=== PATIENT | female | born 1995 | race Caucasian/White ===

== ENCOUNTER 2017-01-23 09:04 | Day surgery (SDC) | payer OTHER ==
[2016-12-23 11:11] VITALS: BMI 26.2
[2017-01-23] VITALS (15 sets, daily range): BP systolic 100–121; BP diastolic 55–70; PULSE 60–90; RESP 10–24; Ht 157.5 cm; Wt 66.4 kg
[~2017-01-23] VITALS: Ht 157.5 cm; Wt 66.4 kg
[~2017-01-23 09:04] MED LIST: CEFAZOLIN 2 GM/50 ML (PMX) 50 ML IVPB SCH; FAMO-18 PO; GUAI120S26 PO; IBUP-1542 PO; LORA10TA3 PO; NITR-58 PO; ONDA4TAB8 PO; POLY17PO6 PO; SOD CHLORIDE 0.9% 1,000 ML IV SCH
[2017-01-23] MEDS ORDERED: MIDAZOLAM 1 MG/ML 2 ML INJ ONE (09:44)
[2017-01-23] MEDS ORDERED: LIDOCAINE 2% (SDV) 5 ML INJ ONE (09:44)
[2017-01-23] MEDS ORDERED: ROCURONIUM 50 MG INJ ONE (09:44)
[2017-01-23] MEDS ORDERED: FENTAnyl 50 MCG/ML VIAL ONE ×2 (09:44→11:58)
[2017-01-23] MEDS ORDERED: SUCCINYLCHOLINE CHLORIDE 100 MG/5 ML SYG IV ONE (09:44)
[2017-01-23] MEDS ORDERED: CEFAZOLIN 1 GM INJ ONE (09:44)
[2017-01-23] MEDS ORDERED: PROPOFOL 20 ML ONE (09:44)
[2017-01-23] MEDS ORDERED: HYDR-906 PO (10:10)
[2017-01-23] MEDS ORDERED: SOD CHLORIDE 0.9% 1,000 ML IV SCH (10:30)
[2017-01-23] MEDS ORDERED: CEFAZOLIN 2 GM/50 ML (PMX) 50 ML IVPB ONE (10:30)
[2017-01-23] MEDS ORDERED: BUPIVACAINE 0.25% (MPF) 30 ML INJ ONE (11:24)
[2017-01-23] MEDS ORDERED: ONDANSETRON 4 MG INJ ONE (11:43)
[2017-01-23] MEDS ORDERED: DEXAMETHASONE 4 MG/ML 1 ML INJ ONE (11:44)
[2017-01-23] MEDS ORDERED: GLYCOPYRROLATE 0.4 MG INJ ONE (11:48)
[2017-01-23] MEDS ORDERED: NEOSTIGMINE 3 MG/3 ML SYRINGE ONE (11:48)
[2017-01-23] MEDS ORDERED: ONDANSETRON 4 MG INJ IV PRN (12:00)
[2017-01-23] MEDS ORDERED: PROCHLORPERAZINE 10 MG INJ IV PRN (12:00)
[2017-01-23] MEDS ORDERED: KETOROLAC 30 MG INJ IV ONE (12:00)
[2017-01-23] MEDS ORDERED: DIPHENHYDRAMINE 50 MG INJ IV PRN (12:00)
[2017-01-23] MEDS ORDERED: HYDROmorphONE (0.2 MG/ML) 10ML SYG IV PRN (12:00)
[2017-01-23] MEDS ORDERED: FENTAnyl 50 MCG/ML VIAL IV PRN (12:00)
[2017-01-23] MEDS ORDERED: MEPERIDINE 25 MG INJ IV PRN (12:00)
[2017-01-23] MEDS ORDERED: OXYCODONE/ACETAMINOPHEN (5/325) TAB PO PRN ×2 (12:00)
[2017-01-23] MEDS ORDERED: METOCLOPRAMIDE 10 MG INJ IV PRN (12:00)
[2017-01-23] MEDS ORDERED: HYDROCODONE/APAP (5/325) TAB PO ONE (12:30)
[2017-01-23] MEDS: HYDROmorphONE (0.2 MG/ML) 10ML SYG IV PRN ×2 (12:37→12:44)
--- NOTE | 2017-01-23 12:39 | OPR ---
DATE OF OPERATION: 01/23/2017 INDICATION: This is a 21-year-old female with symptomatic gallstones. She requests surgical excisi on of her gallbladder. Risks, alternatives, benefits, and personnel were discussed with the patient. The patient expressed understanding and consents to the operation. PREOPERATIVE DIAGNOSIS: Symptomatic gallstones. POSTOPERATIVE DIAGNOSIS: Symptomatic gallstones. OPERATION: Laparoscopic cholecystectomy. SURGEON: Rabia Tse MD SPECIMENS: Gallbladder. COMPLICATIONS: None. ANESTHESIA: General. PROCEDURE: The patient was taken to the OR and prepped and draped in the usual sterile fashion. Nichole rgical timeout was performed. IV antibiotics were given. Infraumbilical transverse incision is mad e with a 15 blade. Dissection cautery was carried down to the fascia which was grasped with Kochers and divided with curved Patterson scissors, 0 Vicryl U-stitch was placed into the fascia. Balloon Hasso n trocar was introduced. Pneumoperitoneum was established. Midepigastric 12 mm optical trocar righ t upper quadrant, right upper flank 5 mm optical trocars are placed under direct visualization. Upo n initial inspection, there were some adhesions to the gallbladder. The cystic duct was identified. The critical view was established. The cystic duct was divided using a 35 mm Hercules vascular morales d stapler. The cystic artery was divided with 2 clips proximal, 1 clip distal. The gallbladder was taken off the gallbladder bed. There was good hemostasis. Gallbladder was retrieved using EndoCat ch bag. Ports were removed under direct visualization. The 0 Vicryl U-stitch was tied down. Skin was closed using skin bushra. Local anesthesia was injected. Dry dressings were applied. Dictated By: RABIA CAMPOS/NAT Conf#: [id number] DID#: [id number]
== END 2017-01-23 14:00 | disposition home or self-care (01) ==
LOC: SDS 09:04
PROVIDERS: ATTEND Surgery
DX: K80.10 Calculus of gallbladder with chronic cholecystitis without obstruction (principal)
CPT/HCPCS: 47562; 88304; J0330; J0690; J1100; J1170; J1885; J2175; J2250; J2405; J2710; J3010; Z7512; Z7610

== ENCOUNTER 2017-02-05 19:01 | Emergency (ER) | payer OTHER ==
[~2017-02-05] VITALS: Ht 157.5 cm; Wt 66.0 kg
[~2017-02-05 19:01] MED LIST changes: -CEFAZOLIN 2 GM/50 ML (PMX) 50 ML IVPB SCH; -FAMO-18 PO; -GUAI120S26 PO; +HYDR-906 PO; -IBUP-1542 PO; -LORA10TA3 PO; -NITR-58 PO; -ONDA4TAB8 PO; -POLY17PO6 PO; -SOD CHLORIDE 0.9% 1,000 ML IV SCH
[2017-02-05 19:16] VITALS: Ht 157.5 cm; Wt 66.0 kg
[2017-02-05] MEDS ORDERED: HYDR-906 PO (20:22)
[2017-02-05] MEDS ORDERED: POLY17PO6 PO (20:22)
[2017-02-05] MEDS ORDERED: HYDR30CR75 PR (20:22)
--- NOTE | 2017-02-05 20:28 | ERD ---
ER Documentation Chief Complaint Date/Time DATE: 02/05/17 TIME: 20:23 Chief Complaint states blood in stool x 2 days HPI 21-year-old female complains of rectal bleeding. Patient states that she has been very constipated as of lately and has been straining hard to push out her stool. She was the past 2 days after bowel movement she feels like a tearing sensation or that she is passing glass. After the bowel movement she has some bright red bleeding in the toilet and on toilet paper . No abdominal pain no dizziness ROS All systems reviewed and are negative except as per history of present illness. Medications Home Meds Active Scripts Polyethylene Glycol* (Miralax*) 17 Gm Powd.pack, 17 GM PO DAILY, #10 PACKET Prov:VANESSA SERVIN DO 02/05/17 Hydrocortisone Acetate* (Anusol-HC*) 30 Gm Cream.gm., 1 APPLIC FL TID, #1 TUB Prov:VANESSA SERVIN DO 02/05/17 Hydrocodone/Acetaminophen ([place] 5-325 Tablet) 1 Each Tablet, 1 TAB PO Q6H Y for PAIN, #7 TAB Prov:VANESSA SERVIN DO 02/05/17 Reported Medications Hydrocodone/Acetaminophen ([place] 5-325 Tablet) 1 Each Tablet, 1 EACH PO Q6 Y for PAIN, TAB 01/23/17 Allergies Allergies: Coded Allergies: No Known Allergy (Unverified , 02/05/17) PMhx/Soc Medical and Surgical Hx: pt denies Surgical Hx History of Surgery: No Anesthesia Reaction: No Hx Neurological Disorder: No Hx Respiratory Disorders: No Hx Cardiac Disorders: No Hx Psychiatric Problems: No Hx Miscellaneous Medical Probl: No Hx Alcohol Use: No Hx Substance Use: No Hx Tobacco Use: No Smoking Status: Never smoker FmHx Family History: No coronary disease Physical Exam Vitals Vital Signs Date Time Temp Pulse Resp B/P Pulse Ox O2 Delivery O2 Flow Rate FiO2 02/05/17 19:16 98.2 97 20 123/77 100 Physical Exam Const: [Well-developed, well-nourished] Head: [Atraumatic, normocephalic] Eyes: [Normal Conjunctiva, PERRLA, EOMI, normal sclera, no nystagmus] ENT: [Normal External Ears, Nose and Mouth, moist mucus membranes.] Neck: [Full range of motion. No meningismus, no lymphadenopathy.] Resp: [Clear to auscultation bilaterally, no wheezing, rhonchi, rales] Cardio: [Regular rate and rhythm, no murmurs, S1 S2 present] Abd: [Soft, non tender x 4, non distended. Normal bowel sounds, no guarding or rebound, no pulsitile abdominal masses or bruits Rectal: There is an anal fissure at the 3 o'clock position] Skin: [No petechiae or rashes, no ecchymosis , no maculopapular rash] Back: [No midline or flank tenderness] Ext: [No cyanosis, or edema, FROM x 4, normal inspection, neurovascularly intact x 4] Neur: [Awake and alert, STR 5/5 x 4, sensation intact x 4, no focal findings, cerebellum intact] Psych: [Normal Mood and Affect] Departure Diagnosis: Primary Impression: Anal fissure Condition: Stable Patient Instructions: Anal Fissure (Child) VANESSA SERVIN DO Feb 05, 2017 20:28
== END 2017-02-05 20:58 | disposition home or self-care (01) ==
LOC: FTE 19:01
DX: K60.0 Acute anal fissure (principal)
CPT/HCPCS: 99283

== ENCOUNTER 2019-01-18 22:12 | Emergency (ER) | payer BC, OTHER ==
[~2019-01-18] VITALS: Wt 70.5 kg
[~2019-01-18 22:12] MED LIST changes: +HYDR-4011 PO; -HYDR-906 PO; +HYDR30CR75 PR; +POLY17PO6 PO
[2019-01-19] MEDS ORDERED: ONDANSETRON (ODT) 4 MG TAB ODT STA (01:43)
[2019-01-19] MEDS ORDERED: ONDA4TAB14 PO (01:44)
--- NOTE | 2019-01-19 02:04 | ERD ---
ER Documentation Chief Complaint Chief Complaint c/o n/v all day today. no appetite. denies abd pain. on her period HPI Patient states that she has had creased appetite and nausea X4 days and today had postprandial emesis. States that whenever she tries to eat or drink she throws up. She traveled to [place] last weekend. No diarrhea, no abdominal pain, no fever, no cough, no headache, no body aches. ROS All systems reviewed and are negative except as per history of present illness. Medications Home Meds Active Scripts Ondansetron (Ondansetron Odt) 4 Mg Tab.rapdis, 4 MG PO Q6H PRN for NAUSEA AND/OR VOMITING for 3 Days, #10 TAB Prov:QUYEN LOCKWOOD SENIOR ESTIMATOR 01/19/19 Polyethylene Glycol* (Miralax*) 17 Gm Powd.pack, 17 GM PO DAILY, #10 PACKET Prov:VANESSA SERVIN DO 02/05/17 Hydrocortisone Acetate* (Anusol-HC*) 30 Gm Cream.gm., 1 APPLIC MA TID, #1 TUB Prov:VANESSA SERVIN DO 02/05/17 Hydrocodone/Acetaminophen ([place] 5-325 Tablet) 1 Each Tablet, 1 TAB PO Q6H PRN for PAIN, #7 TAB Prov:VANESSA SERVIN DO 02/05/17 Reported Medications Hydrocodone/Acetaminophen ([place] 5-325 Tablet) 1 Each Tablet, 1 EACH PO Q6 PRN for PAIN, TAB 01/23/17 Allergies Allergies: Coded Allergies: No Known Allergy (Unverified , 02/05/17) PMhx/Soc History of Surgery: Yes (GALLBLADDER REMOVAL 2016) Anesthesia Reaction: No Hx Neurological Disorder: No Hx Respiratory Disorders: No Hx Cardiac Disorders: No Hx Psychiatric Problems: No Hx Miscellaneous Medical Probl: No Hx Alcohol Use: Yes (occasionally) Hx Substance Use: No Hx Tobacco Use: No Smoking Status: Never smoker Physical Exam Vitals Vital Signs Date Temp Pulse Resp B/P (MAP) Pulse Ox O2 O2 Flow FiO2 Time Delivery Rate 01/18/19 98.9 82 20 138/68 100 22:37 (91) Physical Exam Const: No acute distress Head: Atraumatic Eyes: Normal Conjunctiva ENT: Normal External Ears, Nose and Mouth. Neck: Full range of motion. No meningismus. Resp: Clear to auscultation bilaterally Cardio: Regular rate and rhythm, no murmurs Abd: Soft, non tender, non distended. Normal bowel sounds. Skin: No petechiae or rashes, good skin turgor Back: No midline or flank tenderness Ext: No cyanosis, or edema Neur: Awake and alert Psych: Normal Mood and Affect Results 24 hrs Laboratory Tests Test 01/19/19 02:00 01/19/19 02:02 Bedside Urine pH (LAB) 6.0 Bedside Urine Protein (LAB) 1+ Bedside Urine Glucose (UA) Negative Bedside Urine Ketones (LAB) Trace Bedside Urine Blood 3+ Bedside Urine Nitrite (LAB) Negative Bedside Urine Leukocyte Esterase (L Negative POC Beta HCG, Qualitative NEGATIVE Current Medications Medications Dose Sig/Yessenia Start Time Status Last (Trade) Ordered Route PRN Stop Time Admin Dose Reason Admin Ondansetron 4 mg ONCE STAT 01/19/19 DC 01/19/19 HCl (Zofran ODT 01:43 01/19/19 01:57 Odt) 01:44 PATIENT IS CURRENTLY ON HER PERIOD- BLOOD DUE TO MENSES Procedures/MDM This patient has gastroenteritis. Without culture results, a preliminary diagnosis of undifferentiated (viral. bacterial or other type) gastroenteritis is made. Although this case is most consistent with a self limiting form of gastroenteritis, no evaluation can entirely exclude other, more serious causes. The usual precautions and warning signs were discussed. The patient was warned to return immediately for worsening symptoms or any concerns. They were advised to seek immediate follow-up with the PMD if the illness does not follow the usu al course of gastroenteritis as discussed. The patient looked well during ED observation. Oral rehydration therapy instructions and dietary recommendations were provided. Use of antibiotics in undifferentiated gastroenteritis can lead to problems with certain bacterial etiologies. Since bacterial gastroenteritis is usually self limiting and requires only supportive care, antibiotics were not used to reduce the risk of prolonged carrier state, hemolytic-uremic syndrome and C. diff colitis. Departure Diagnosis: Primary Impression: Nausea and vomiting Referrals: [facility] (PCP) Additional Instructions: Zofran every 6 hours for the next 24 hours Drink frequent sips of water or electrolyte solution over the next 24 hours Avoid foods that are spicy, fattening, caffeine, alcohol Follow-up with primary care physician if symptoms continue Return to the emergency room with any worsening or uncontrolled symptoms QUYEN LOCKWOOD NP Jan 19, 2019 02:01
[2019-01-19 02:35] VITALS: BP 134/77; PULSE 68; RESP 20
== END 2019-01-19 02:36 | disposition home or self-care (01) ==
LOC: FTE 22:12
DX: R11.2 Nausea with vomiting, unspecified (principal)
CPT/HCPCS: 81003; 81025; 99283; Z7610